=== PATIENT | male | born 1990 | race Caucasian/White ===

== ENCOUNTER 2025-02-09 22:07 | Emergency (ER) | payer MEDICAID, SELFPAY ==
[2025-02-09 22:18] VITALS: BP 132/80; PULSE 76; RESP 18; TEMP 36.9; O2SAT 97; BMI 26.0
--- NOTE | 2025-02-09 22:31 | PD.EDRME ---
Rapid Medical Screening Exam RME Arrival date/time: 02/09/25 22:07 34M with no known PMH presents to ED with SI w/o plan. Patient has been feeling more hopeless recently due to life stressors. Patient had a bad argument with his GF today. Patient denies HI. Chief Complaint: Suicidal Vital signs: Vital Signs Temperature 98.5 F 02/09/25 22:18 Pulse Rate 76 02/09/25 22:18 Respiratory Rate 18 02/09/25 22:18 Blood Pressure 132/80 H 02/09/25 22:18 Pulse Oximetry (%) 97 02/09/25 22:18 Oxygen Delivery Method Room Air 02/09/25 22:18
--- NOTE | 2025-02-09 22:45 | PC.NURSE ---
PATIENT EXPRESSES SI WITH A PLAN. PATIENT STATES I HAVE HAD THOUGHTS OF HARMING MYSELF SINCE I WAS A CHILD I JUST HAVE NEVER ACTED ON IT. MY PLAN IS TO GET A CO2 TANK AND JUST LOCK MYSELF IN MY CAR. I JUST DONT EVER DO IT.
[2025-02-09 23:03] LABS: Basophils # (Auto) 0.1 Thou/mm3 (0.0-0.2); Basophils % (Auto) 1 % (0-2.5); Eosinophils # (Auto) 0.1 Thou/mm3 (0.0-0.5); Eosinophils % (Auto) 1 % (0-10); Hematocrit 43.9 % (41.0-53.0); Hemoglobin 14.9 g/dL (13.5-16.0); Immature Granulocytes Auto 0.07 Thou/mm3 (0.00-0.00); Lymphocytes # (Auto) 2.6 Thou/mm3 (1.0-4.8); Lymphocytes % (Auto) 20 % (10-50); Mean Corpuscular HGB Conc 33.9 g/dl (31.0-37.0); Mean Corpuscular Hemoglobin 28.4 pg (25.0-35.0); Mean Corpuscular Volume 84 fL (80-100); Monocytes # (Auto) 1.3 Thou/mm3 (0.0-0.8); Monocytes % (Auto) 10 % (0-12); Neutrophils # (Auto) 9.0 Thou/mm3 (1.8-7.7); Neutrophils % (Auto) 68 % (37-80); Nucleated Red Blood Cell # 0.00 Thou/mm3 (0.00-0.00); Nucleated Red Blood Cell % 0 /100 WBC (0); Platelet Count 257 Thou/mm3 (140-440); RDW Standard Deviation 37.2 fL (35.1-43.9); Red Blood Count 5.25 Miln/mm3 (4.50-5.90); White Blood Count 13.1 Thou/mm3 (3.8-10.6)
[2025-02-09 23:15] LABS: Acetaminophen < 2.0 mcg/mL (10.0-20.0); Alanine Aminotransferase 14 U/L (10-49); Albumin, Serum 5.4 gm/dL (3.5-5.0); Albumin/Globulin Ratio 2.2 (1.2-2.2); Alcohol, Blood Medical < 3.0 mg/dL (0-10.0); Alkaline Phosphatase 74 U/L (46-116); Anion Gap 10 (7-16); Aspartate Amino Transferase 20 U/L (0-34); BUN/Creatinine Ratio 14 Ratio (12-20); Bilirubin,Total 0.5 mg/dL (0.3-1.2); Blood Urea Nitrogen 14 mg/dL (9-23); Calcium 11.0 mg/dL (8.3-10.6); Calcium (Corrected) 11.0 mg/dL (8.5-10.1); Carbon Dioxide 29.0 mMol/L (20.0-31.0); Chloride 104 mMol/L (98-107); Creatinine (Component) 1.0 mg/dL (0.6-1.3); Estimated Creatinine Clearance 109.5 mL/min (>60); Globulin 2.5 gm/dL (2.3-3.5); Glucose 63 mg/dL (74-106); Osmolality,Calculated 283 (275-295); Potassium 3.4 mMol/L (3.4-5.1); Salicylate < 3.0 mg/dL; Sodium 143 mMol/L (136-145); Total Protein 7.9 gm/dL (5.7-8.2); eGFR > 60 See Note
--- NOTE | 2025-02-09 23:39 | EDNOTE_ITS ---
ED Psych RME/HPI General Chief Complaint: Suicidal Stated Complaint: SUICIDAL THOUGHTS Time Seen by Provider: 02/09/25 22:45 Arrival date/time: 02/09/25 22:07 RME / HPI RME / HPI Narrative: 02/09/25 22:07 34M with no known PMH presents to ED with SI w/o plan. Patient has been feeling more hopeless recently due to life stressors. Patient had a bad argument with his GF today. Patient denies HI. DR. RODNEY MAIN ED EVALUATION: Patient presents with ongoing depression for approximately 1 year with prior job loss, custody legal issues, now with recurring suicidal ideation with associated plan. Reports sleep disturbance, reduced concentration, and anhedonia. Denies family history of suicide, although does report family history of depression. No prior psychiatric care. PMHx positive for childhood asthma. PSHx is noncontributory. Social history includes occasional alcohol and marijuana use. Reports allergies to Penicillin. Related Data Home Medications ?Medication ?Instructions ?Recorded ?Confirmed ibuprofen 600 mg tablet 600 mg PO Q6HR PRN PAIN #0 t abs 12/13/15 Previous Rx's ?Medication ?Instructions ?Recorded dicyclomine 20 mg tablet 20 mg PO BID #10 tabs Allergies Allergy/AdvReac Type Severity Reaction Status Date / Time Penicillins Allergy Mild Rash Verified 08/20/21 11:40 Review of Systems Review of Systems Systems Reviewed: All systems reviewed, normal except as documented Past Medical History Past Medical History RESPIRATORY: Positive Asthma Social History SMOKING STATUS: Never smoker SUBSTANCE USE: marijuana ALCOHOL: Current ED Exam Narrative Physical exam: GEN. APPEARANCE: The patient is alert awake oriented X-3 in no distress, lying down comfortably, does not look ill/toxic. Patient has good eye contact. Patient is cooperative. Slightly withdrawn, affect depressed. VITALS: All vitals were reviewed and the pulse ox is 97% on room air which is normal according to my interpretation. HEENT: Normocephalic, atraumatic. Pupils are equal and reactive. Oral mucosa is moist. Patent Nares NECK: Supple, nontender, no thyromegaly, no meningismus, no JVD, no step offs CHEST: Symmetrical, atraumatic, and with equal expansion , Nontender on palpa tion no deformity and no crepitus. CARDIOVASCULAR: Heart regular rhythm no murmur or gallop rub or extra beats. LUNGS: Clear to auscultation bilaterally with symmetrical chest rise. No laboring tachypnea or wheezing. No intercostal subcostal retraction. No rales and no rhonchi. ABDOMEN: Soft, flat, nontender to palpation, no guarding or rebound tenderness. There are no abnormal masses palpated. Active and normal bowel sounds. EXTREMITIES: Nontender. No edema. No cyanosis. Patient is able to move all 4 extremities well, with full ROM and good CSM. SKIN: Warm and dry, no jaundice or rashes noted. MUSCULOSKELETAL: No lubar or midline bony tenderness. There is no CVA tenderness. No paraspinal muscle spasm or tenderness. NEURO: Patient is DEAN x 4, Cranial nerves II through XII grossly intact. There is no focal neurologic deficits noted. GCS is 15, PNS and DISTRIBUTION ESTIMATOR appear grossly intact. PSYCHIATRIC: Affect depressed, speech is goal-directed, Possitive suicidal ideation with plan, no HI, and no psychosis Course Quality Measures none Orders Category Date Time Status Acetaminophen Stat Lab 02/09/25 22:43 Completed Alcohol, Blood Medical Stat Lab 02/09/25 22:43 Completed CBC Stat Lab 02/09/25 22:43 Completed CMP [Comprehensive Metabolic Panel] Stat Lab 02/09/25 22:43 Completed Drug Screen,Urine Stat Lab 02/10/25 03:23 Completed Salicylate Stat Lab 02/09/25 22:43 Completed Furosemide [Lasix Inj] Med 02/10/25 03:33 Discontinued 20 mg IVP X1 ONE Sodium Chloride 0.9% 1000 ml [Ns] 1,000 ml Med 02/10/25 03:11 Discontinued IV 999 mls/hr Sodium Chloride 0.9% 1000 ml [Ns] 1,000 ml Med 02/10/25 03:26 Discontinued IV 999 mls/hr Vital Signs Vital signs: Vital Signs Temperature 98.5 F 02/09/25 22:18 Pulse Rate 76 02/09/25 22:18 Respiratory Rate 18 02/09/25 22:18 Blood Pressure 132/80 H 02/09/25 22:18 Pulse Oximetry (%) 97 02/09/25 22:18 Oxygen Delivery Method Room Air 02/09/25 22:18 Psych MDM Narrative MDM Narrative:: Scribe Attestation: I, Siena Schwartz, am scribing for and in the presence of Dr. Rodney. Provider Notation: Although this document has been carefully reviewed, there may still be some phonetic and other typographical errors. These errors are purely grammatical due to imperfections in the software program and should not be construed in any way to compromise the substance of the patient's medical care during this visit. Patient presents with ongoing depression for approximately 1 year with prior job loss, custody legal issues, now with recurring suicidal ideation with associated plan. Reports sleep disturbance, reduced concentration, and anhedonia. Please see PE findings. Psychiatric screening labs including CBC demonstrates wbc of 13.1, normal hemoglobin and hematocrit. Serum chemistries unremarkable, excluding calcium of 11, for which patient received IV fluids and diauretics. No alcohol, acetaminophen, or aspirin detected. Toxicology screening positive for marijuana only. Patient medically cleared for psychiatric evaluation. Disposition includes psychiatric treatment and further treatment for hypercalcemia non-emergently. Patient data External records reviewed:: [facility] previous records (Reviewed prior ED records from 08/20/21. Patient was seen for Abdominal pain.) Clinical information provided by:: patient Social determinants that could affect healthcare access:: mental health (Depression/Alcohol/Marijuana) Patient has the following chronic illnesses:: Asthma How is presenting disease/condition affected by chronic disease/condition?: uneffected by Evaluation data The following diagnostics were reviewed and interpreted by me:: lab results Lab and/or radiology exams considered but not ordered:: None Interpretation Summary: See MDM above. Medications / Prescriptions Medications or Prescriptions considered but not ordered:: None Medication administrations:: Medication Administration History Discontinued Medications Furosemide (Furosemide Inj 10 Mg/Ml Vial 2 Ml) 20 mg IVP X1 ONE Stop: 02/10/25 03:34 Last Admin: 02/10/25 03:40 Dose: 20 mg Documented By: ERICK Sodium Chloride (Ns) 1,000 mls @ 999 mls/hr IV .Q1H1M ONE Stop: 02/10/25 04:11 Last Infusion: 02/10/25 04:49 Dose: Infused Documented By: Admin: 02/10/25 03:31 Dose: 999 mls/hr Documented By: ERICK Sodium Chloride (Ns) 1,000 mls @ 999 mls/hr IV .Q1H1M ONE Stop: 02/10/25 04:26 Last Infusion: 02/10/25 04:49 Dose: Infused Documented By: Admin: 02/10/25 03:42 Dose: 999 mls/hr Documented By: DT See above if any Consultations Consultation(s) initiated? (list below): No Diagnosis Psych Differential Diagnosis: acute psychosis, suicidal ideation, bipolar disorder, depression, drug-induced psychotic disorder and acute anxiety Most likely diagnosis given after review of the tests above:: Suicidal ideation, Chronic depression Admission Indicated Admission indicated?: not indicated Explain why admission is indicated or not indicated:: Pending psychiatric evaluation. Admission Request Was there a request for admission?: No Disposition Plan Disposition Plan: other (specify) (Signed out to oncoming ED physician at 6 AM.) Discharge Plan Prescriptions/Referrals Prescriptions/Med Rec: No Action ibuprofen 600 MG tablet 600 mg PO Q6HR PRN (Reason: PAIN) Qty: 0 dicyclomine 20 mg tablet 20 mg PO BID Qty: 10 0RF Referrals: No Primary/Family,Physician [Primary Care Provider] - In 1 week Problem List Clinical Impression: Suicidal ideation, Chronic depression, Hypercalcemia Patient/Caregiver Discharge Instructions Print Language: Italian
[2025-02-10] MEDS: SODIUM CHLORIDE 0.9% 1000 ML 1,000 ML 999 ML IV ×2 (03:31→03:42)
[2025-02-10 03:40] VITALS: BP 116/72; PULSE 60
[2025-02-10] MEDS: FUROSEMIDE INJ 10 MG/ML VIAL 2 ML 20 MG IVP (03:40)
[2025-02-10 04:23] LABS: Amphetamine/Methamp Scrn,U Negative (Negative); Barbiturate Screen,Urine Negative (Negative); Benzodiazepines Screen,Urine Negative (Negative); Benzoylecgonine Screen, Ur Negative (Negative); Fentanyl Screen,Urine Negative (Negative); Opiate Screen,Urine Negative (Negative); THC Screen,Urine Positive (Negative)
[2025-02-10 07:17] VITALS: BP 124/82; PULSE 63; RESP 16; TEMP 36.8; O2SAT 98
[2025-02-10 09:04] VITALS: BP 111/70; PULSE 60; RESP 17; TEMP 36.7; O2SAT 99
--- NOTE | 2025-02-10 09:56 | PD.EDADDENDU ---
Emergency Room Addendum Addendum Narrative: 0600: Care assumed from Dr. Seymour, the previous shift emergency physician. Past medical, surgical, social and family history reviewed. Vitals and home medications reviewed. I will assume the care of the patient at this time, pending mental health evaluation. Please refer to the emergency department record for history and examination from initial visit.?The following addendum documentation note is intended to reflect any pending information, findings, or radiology results not included in the patient?s initial chart. Patient has been evaluated by sr. social media & mobile manager and have created a safety plan with mother and patient. Report he has an appointment scheduled tomorrow with therapist at Behavioral health clinic. Patient has remained stable through ED course. Will DC home.
[2025-02-10 11:08] VITALS: BP 110/71; PULSE 69; RESP 16; TEMP 36.7; O2SAT 97
--- NOTE | 2025-02-10 11:49 | PC.SS ---
Accredited Farm Manager (SHELL) Lorraine, along with SANNA Rose, reviewed the chart following a consult for High-Risk suicidal ideation. Per chart review, the patient presented to the ED for SI w/o a plan. Patient has been feeling more hopeless recently due to life stressors. The patient had a bad argument with his GF today. Patient denies HI. SHELL and SANNA met with the patient at the bedside and introduced self, their roles, and the reason for the consult. SW went over the limits of confidentially. Patient is alert and oriented to person, place, time, and situation. Patient verbally consented to participate in the assessment. Patient presented appropriately, cooperative, and with good eye contact. Patient presented with no signs of delusions, paranoia, or hallucinations. Patient designated his mother, Willow Wolfe, , as his surrogate medical decision maker and provided verbal consent for SW to contact her for collateral information. Patient is Cornelius Wolfe, , 34 y/o single, , Faroese-speaking male residing with girlfriend and [id number] daughter at [address] [place] [address]. Patient reports sharing 50/50 custody and reports a good co-parenting relationship. Patient reports great family support from his mother and uncle. Patient is employed by [employer] and [employer]. Patient is independent and able to attend to his ADLs. Patient is insured by [facility] care. Patient's PCP is from [facility]. Patient denied MHdx, abuse/neglect. Patient denied current suicidal/homicidal ideations, visual/auditory hallucinations; however, patient reports hx of suicidal ideation since childhood. Patient reports that last night he got into an argument with his girlfriend, where he ended the relationship and began having thoughts of wanting to end his life with the plan to open his CO2 tank in his car. Patient reports it was in the heat of the moment that he thought about it, but is currently denying any thoughts of wanting to end his life. Patient reports, I don't think I really wanted to do it. Patient's protective factors are his daughter, family, work, and his friends. Patient is open and interested in mental health services. Per the chart review, the patient was positive for Marijuana. SHELL provided the patient with AOD resources. Patient is willing to safety plan with his mother. SANNA Rose spoke to patient's mother, who is willing to safety plan and provide 24/7 care for his for the next few days. SHELL and SANNA met with the patient and his mother, Willow, and explained the liability and responsibility to keep the home safe and to make sure the patient follows up with his medical and behavioral appointments. Discharge plan: SHELL scheduled an ER follow-up with [facility] at [address] [place] [address], for 02/11/25 @2:15pm with DR. Key and a behavioral appointment for today, 02/10/25 @5:30pm at [facility] at [address] [place] [address] Priscila Mckenzie. SHELL provided the patient and mother, Willow, with the address and appointment times for both appointments. SHELL follow up with ELLI Whittaker and MD Clarke regarding patient discharge plan, home with family support. Patient at this time does not meet criteria for a 5150 hold. Patient is not current suicidal/homicidal and is presenting with a goal-oriented thought process with no signs of delusions, paranoia, or hallucinations. SHELL staffed the case with BROWN Parada.
== END 2025-02-10 11:10 | disposition home or self-care (01) ==
PROVIDERS: Physician Assistant; Emergency Provider Family Medicine
DX: R45.851 Suicidal ideations (principal); F32.A Depression, unspecified; E83.52 Hypercalcemia; J45.909 Unspecified asthma, uncomplicated
CPT/HCPCS: 36415; 80053; 80307; 80320; 80329; 85025; 96127; 96361; 96374; 99283; J1938; J7030; G0480